=== PATIENT | male | born 1930 | race American Indian/Alaskan Native ===

== ENCOUNTER 2016-07-09 07:38 | Emergency (ER) | payer MEDICARE ==
[2016-07-09 08:10] VITALS: BP 166/87
--- NOTE | 2016-07-09 09:19 | Emergency Department Report ---
ED General Adult HPI - General Chief complaint: Upper Respiratory Infection Stated complaint: NASAL CONGESTION/SORE THROAT Time Seen by Provider: 07/09/16 09:02 Source: patient Mode of arrival: Ambulatory Limitations: No Limitations - History of Present Illness Initial comments: Pt c/o a head cold x 1 week. PT states when it started, he had a sore throat but that improved sp warm salt water rinses. PT reports subjective fevers and states this am he had dry cough. pt denies sob MD Complaint: sinus congestion Onset/Timin -: Gradual, week(s) Location: head Severity scale (0 -10): 8 Quality: other (pressure ) Associated Symptoms: cough (x 1 this am), fever/chills (subjective fever ), headaches. denies: chest pain - Related Data Home Medications Medication Instructions Recorded Confirmed Last Taken Aspirin [Aspirin BABY CHEW TAB] 81 mg PO QDAY 01/23/15 01/23/15 01/23/15 Insulin Glargine,Hum.rec.anlog 23 units SQ QHS 01/23/15 01/23/15 01/22/15 [Lantus Solostar] Previous Rx's Medication Instructions Recorded Last Taken Type Hydrochlorothiazide [HCTZ] 25 mg PO QDAY #30 tablet 01/25/15 Unknown Rx guaiFENesin [Robitussin] 200 mg PO Q8H PRN #1 oral.liqd 01/25/15 Unknown Rx Allergies Allergy/AdvReac Type Severity Reaction Status Date / Time Fish Containing Products Allergy Rash Verified 01/06/14 20:37 ED Review of Systems ROS: Stated complaint: NASAL CONGESTION/SORE THROAT Other details as noted in HPI Comment: All other systems reviewed and negative Constitutional: fever ENT: ear pain, throat pain (improved), congestion Respiratory: cough. denies: shortness of breath Cardiovascular: denies: chest pain Endocrine: other (pt states he checked his bg this am and it was 230. PT states he did not take his daily medication because he was afraid he would drop his blood sugar too low ) Gastrointestinal: denies: vomiting ED Past Medical Hx - Past Medical History Hx Hypertension: Yes Hx Diabetes: Yes - Surgical History Additional Surgical History: abd ulcer - Social History Smoking Status: Never Smoker Substance Use Type: None - Medications Home Medications: Home Medications Medication Instructions Recorded Confirmed Last Taken Type Aspirin [Aspirin BABY CHEW TAB] 81 mg PO QDAY 01/23/15 01/23/15 01/23/15 History Insulin Glargine,Hum.rec.anlog 23 units SQ QHS 01/23/15 01/23/15 01/22/15 History [Lantus Solostar] Hydrochlorothiazide [HCTZ] 25 mg PO QDAY #30 tablet 01/25/15 Unknown Rx guaiFENesin [Robitussin] 200 mg PO Q8H PRN #1 oral.liqd 01/25/15 Unknown Rx ED Physical Exam - General Limitations: No Limitations General appearance: alert, in no apparent distress - Head Head exam: Present: atraumatic, normocephalic, normal inspection, other ( frontal and maxillary tenderness devendra ) - Eye Eye exam: Present: normal appearance, PERRL - ENT ENT exam: Present: normal exam, normal orophraynx, mucous membranes moist, other (sinus tenderness ) - Neck Neck exam: Present: normal inspection. Absent: tenderness, meningismus - Respiratory Respiratory exam: Present: normal lung sounds bilaterally. Absent: respiratory distress, wheezes, chest wall tenderness, accessory muscle use - Cardiovascular Cardiovascular Exam: Present: regular rate, normal rhythm, normal heart sounds - GI/Abdominal GI/Abdominal exam: Present: soft. Absent: tenderness - Extremities Exam Extremities exam: Present: normal inspection, full ROM - Back Exam Back exam: Present: normal inspection, full ROM. Absent: tenderness - Neurological Exam Neurological exam: Present: alert, oriented X3 - Psychiatric Psychiatric exam: Present: normal affect, normal mood - Skin Skin exam: Present: warm, dry, intact ED Course Vital Signs 07/09/16 08:06 Temperature 98.9 F Pulse Rate 88 Respiratory 18 Rate Blood Pressure 166/87 O2 Sat by Pulse 98 Oximetry - Reevaluation(s) Reevaluation #1: 07/09/16 09:26 PT aware of dx and plan of care. PT encouraged to take his home medication as prescribed and to follow up with PCP for bg and bp recheck. PT's bg was 259 per EMS. - Pulse Oximetry Interpretation Digit-Finger Initial Pulse Oximetry Readin Actions Taken: none ED Medical Decision Making - Differential Diagnosis viral uri, sinusitis, bronchitis Critical care attestation.: If time is entered above; I have spent that time in minutes in the direct care of this critically ill patient, excluding procedure time. ED Disposition Clinical Impression: Non-compliant patient Acute sinus infection Qualifiers: Sinusitis location: unspecified location Recurrence: non-recurrent Qualified Code(s): J01.90 - Acute sinusitis, unspecified Disposition: DISCHARGED TO HOME OR SELFCARE Is pt being admited?: No Does the pt Need Aspirin: No Condition: Stable Instructions: Sinusitis (ED) Additional Instructions: Normal saline nasal spray 4 times a day Take your home medication as prescribed Follow up with PCP for recheck of blood sugar and blood pressure Referrals: PRIMARY CARE,MD [Primary Care Provider] - 3-5 Days JAMES CHOUDHARY MD [Staff Physician] - 3-5 Days Time of Disposition: 09:29
== END 2016-07-09 09:38 | disposition home or self-care (01) ==
LOC: ED 07:38
DX: J01.90 Acute sinusitis, unspecified (principal); I10 Essential (primary) hypertension; E11.9 Type 2 diabetes mellitus without complications; Z79.4 Long term (current) use of insulin; Z79.82 Long term (current) use of aspirin; Z91.013 Allergy to seafood
CPT/HCPCS: 99283

== ENCOUNTER 2017-01-01 00:42 | Emergency (ER) | payer MEDICARE ==
[2017-01-01 01:46] LABS: Anion Gap 19 mmol/L; Blood Urea Nitrogen 21 mg/dL (9-20); Calcium 9.6 mg/dL (8.4-10.2); Carbon Dioxide 26 mmol/L (22-30); Chloride 101.6 mmol/L (98-107); Glucose 195 mg/dL (75-100); Potassium 4.1 mmol/L (3.6-5.0); Sodium 142 mmol/L (137-145)
[2017-01-01 01:48] LABS: Basophils % (Auto) 0.8 % (0.0-1.8); Eosinophils % (Auto) 7.9 % (0.0-4.3); Hematocrit 37.1 % (35.5-45.6); Mean Corpuscular HGB Conc 32 % (32-34); Mean Corpuscular Hemoglobin 29 pg (28-32); Mean Corpuscular Volume 89 fl (84-94); Platelet Count 168 K/mm3 (140-440); Red Blood Count 4.19 M/mm3 (3.65-5.03); Red Cell Distribution Width 13.1 % (13.2-15.2); White Blood Count 7.6 K/mm3 (4.5-11.0)
--- NOTE | 2017-01-01 03:37 | Emergency Department Report ---
ED General Adult HPI - General Chief complaint: Chest Pain Stated complaint: POSS ALLERGIC REACTION/CHEST PAIN Time Seen by Provider: 01/01/17 02:35 Source: patient Mode of arrival: Ambulatory Limitations: No Limitations - History of Present Illness Initial comments: Patient is an 86-year-old L past medical history of diabetes and high blood pressure who presents with throat pain. Patient states that it started after he took his lisinopril at 7 PM yesterday. He also states that the pain radiates from his neck to his shoulders. He states initially that the pain was a 6 out of 10 and currently now he is in no pain. Patient was recently discharged 2 days ago for similar symptoms. Had a full cardiac workup which was negative. Patient's pain is a burning type of pain eating makes it worse and nothing makes it better. Patient denies having any nausea or vomiting. Severity scale (0 -10): 0 - Related Data Home Medications Medication Instructions Recorded Confirmed Last Taken Insulin Glargine,Hum.rec.anlog 23 units SQ QHS 01/23/15 01/01/17 12/31/16 [Lantus Solostar] Previous Rx's Medication Instructions Recorded Last Taken Type AtorvaSTATin [Lipitor] 40 mg PO QHS #30 tablet 12/30/16 12/31/16 Rx Famotidine [Pepcid] 20 mg PO BID #60 tablet 12/30/16 12/31/16 Rx Lisinopril [Zestril TAB] 10 mg PO QDAY #30 tablet 12/30/16 Unknown Rx Allergies Allergy/AdvReac Type Severity Reaction Status Date / Time Fish Containing Products Allergy Rash Verified 01/01/17 01:27 ED Review of Systems ROS: Stated complaint: POSS ALLERGIC REACTION/CHEST PAIN Other details as noted in HPI Constitutional: denies: chills, fever Eyes: denies: eye pain, eye discharge, vision change ENT: denies: ear pain, throat pain Respiratory: denies: cough, shortness of breath, wheezing Cardiovascular: denies: chest pain, palpitations Endocrine: no symptoms reported Gastrointestinal: other (burping). denies: abdominal pain, nausea, diarrhea Genitourinary: denies: urgency, dysuria Musculoskeletal: denies: back pain, joint swelling, arthralgia Skin: denies: rash, lesions Neurological: denies: headache, weakness, paresthesias Psychiatric: denies: anxiety, depression Hematological/Lymphatic: denies: easy bleeding, easy bruising ED Past Medical Hx - Past Medical History Previous Medical History?: Yes Hx Hypertension: Yes Hx Diabetes: Yes Hx Arthritis: Yes - Surgical History Additional Surgical History: abd ulcer - Social History Smoking Status: Never Smoker - Medications Home Medications: Home Medications Medication Instructions Recorded Confirmed Last Taken Type Insulin Glargine,Hum.rec.anlog 23 units SQ QHS 01/23/15 01/01/17 12/31/16 History [Lantus Solostar] AtorvaSTATin [Lipitor] 40 mg PO QHS #30 tablet 12/30/16 01/01/17 12/31/16 Rx Famotidine [Pepcid] 20 mg PO BID #60 tablet 12/30/16 01/01/17 12/31/16 Rx Lisinopril [Zestril TAB] 10 mg PO QDAY #30 tablet 12/30/16 01/01/17 Unknown Rx ED Physical Exam - General Limitations: No Limitations General appearance: alert, in no apparent distress - Head Head exam: Present: atraumatic, normocephalic - Eye Eye exam: Present: normal appearance - ENT ENT exam: Present: mucous membranes moist - Neck Neck exam: Present: normal inspection - Respiratory Respiratory exam: Present: normal lung sounds bilaterally. Absent: respiratory distress - Cardiovascular Cardiovascular Exam: Present: regular rate, normal rhythm. Absent: systolic murmur, diastolic murmur, rubs, gallop - GI/Abdominal GI/Abdominal exam: Present: soft, normal bowel sounds - Rectal Rectal exam: Present: deferred - Extremities Exam Extremities exam: Present: normal inspection - Back Exam Back exam: Present: normal inspection - Neurological Exam Neurological exam: Present: alert, oriented X3 - Psychiatric Psychiatric exam: Present: normal affect, normal mood - Skin Skin exam: Present: warm, dry, intact, normal color. Absent: rash ED Course Vital Signs 01/01/17 01/01/17 01/01/17 00:56 01:27 03:00 Temperature 98.2 F Pulse Rate 81 66 61 Respiratory 20 20 12 Rate Blood Pressure 181/101 Blood Pressure 156/80 169/76 [Right] O2 Sat by Pulse 96 97 99 Oximetry - Reevaluation(s) Reevaluation #1: 01/01/17 04:28 Age and is feeling better after GI cocktail patient will be sent home. ED Medical Decision Making - Lab Data Result diagrams: 01/01/17 01:07 01/01/17 01:07 Lab Results 01/01/17 01/01/17 Range/Units 01:07 01:07 WBC 7.6 (4.5-11.0) K/mm3 RBC 4.19 (3.65-5.03) M/mm3 Hgb 12.0 (11.8-15.2) gm/dl Hct 37.1 (35.5-45.6) % MCV 89 (84-94) fl MCH 29 (28-32) pg MCHC 32 (32-34) % RDW 13.1 L (13.2-15.2) % Plt Count 168 (140-440) K/mm3 Lymph % (Auto) 33.4 (13.4-35.0) % [place] % (Auto) 8.8 H (0.0-7.3) % Eos % (Auto) 7.9 H (0.0-4.3) % Baso % (Auto) 0.8 (0.0-1.8) % Lymph # 2.5 (1.2-5.4) K/mm3 [place] # 0.7 (0.0-0.8) K/mm3 Eos # 0.6 H (0.0-0.4) K/mm3 Baso # 0.1 (0.0-0.1) K/mm3 Seg Neutrophils % 49.1 (40.0-70.0) % Seg Neutrophils # 3.7 (1.8-7.7) K/mm3 Sodium 142 (137-145) mmol/L Potassium 4.1 (3.6-5.0) mmol/L Chloride 101.6 (98-107) mmol/L Carbon Dioxide 26 (22-30) mmol/L Anion Gap 19 mmol/L BUN 21 H (9-20) mg/dL Creatinine 1.0 (0.8-1.5) mg/dL Estimated GFR > 60 ml/min BUN/Creatinine Ratio 21.00 % Glucose 195 H (75-100) mg/dL Calcium 9.6 (8.4-10.2) mg/dL Troponin T < 0.010 (0.00-0.029) ng/mL - EKG Data -: EKG Interpreted by Me - EKG Data 01/01/17 04:28 EKG shows normal sinus rhythm right bundle branch block normal axis. No new changes compared to old EKG. - Radiology Data Radiology results: image reviewed Chest x-ray: Shows no acute cardiopulmonary disease - Medical Decision Making Chief medical diagnosis: Dysphagia Differential medical diagnosis non-STEMI, GERD, gastritis CBC, CMP, troponin, EKG, GI cocktail Patient unlikely has non-STEMI as he had a cardiac workup 3 days ago and was admitted to similar symptoms after he was on his medication. Patient most likely has dysphagia PATIENT follow-up with Dr. Begum later on this week. Discussed plan with patient he agrees with plan. Gait patient return precautions come back to the ER. Additional verbal discharge instructions were given Critical care attestation.: If time is entered above; I have spent that time in minutes in the direct care of this critically ill patient, excluding procedure time. ED Disposition Clinical Impression: Dysphagia Qualifiers: Dysphagia type: unspecified Qualified Code(s): R13.10 - Dysphagia, unspecified Disposition: DC- TO HOME OR SELFCARE Is pt being admited?: No Does the pt Need Aspirin: No Condition: Stable Instructions: Barium Swallow (ED), Esophageal Spasm (ED) Referrals: ANNABELLE SANTIAGO MD [Primary Care Provider] - 3-5 Days JASMEET BEGUM MD [Staff Physician] - 3-5 Days Time of Disposition: 04:35
[2017-01-01] MEDS ORDERED: ALUM-MAG HYDROX-SIMETH 200-200-20MG/5ML PO ONE (03:38)
[2017-01-01] MEDS ORDERED: LIDOCAINE VISCOUS 2% PO ONE (03:38)
[2017-01-01 04:45] VITALS: BP 170/77
--- NOTE | 2017-01-01 09:10 | XRay Report ---
ROUTINE CHEST, TWO VIEWS: Chest pain. PA and lateral views demonstrate the heart and mediastinal contour to be of normal size and shape. The lungs are clear except for small left basilar scar unchanged from prior exams. The lungs are fully expanded and the soft tissues and bony structures are normal. IMPRESSION: No acute findings.
== END 2017-01-01 04:46 | disposition home or self-care (01) ==
LOC: ED 00:42
DX: R13.10 Dysphagia, unspecified (principal); I10 Essential (primary) hypertension; E11.9 Type 2 diabetes mellitus without complications; M19.90 Unspecified osteoarthritis, unspecified site; Z91.013 Allergy to seafood; Z79.4 Long term (current) use of insulin
CPT/HCPCS: 36415; 71020; 80048; 84484; 85025; 93005; 93010; 99284